=== PATIENT | female | born 1970 | race Caucasian/White ===

== ENCOUNTER 2017-03-21 15:09 | Emergency (ER) | payer MEDICAID, OTHER ==
[2017-03-21 15:23] VITALS: BMI 28.3
[2017-03-21 15:36] VITALS: RESP 16
--- NOTE | 2017-03-21 16:04 | ED PDOC ---
Arrival/HPI - General Chief Complaint: Headache Time Seen by Provider: 03/21/17 15:27 Historian: Patient, Spouse, Family - History of Present Illness Narrative History of Present Illness (Text): 03/21/17 16:00 46 yo female, amharic and central african speaking, translation offered but requested and daughter for translation, no PMHx, presents to the ED c/o headache since early this morning. Headache is on the top of her head and occipital area described as throbbing 7/10. Not the worst headache of her life. The headache has improved. Early in the morning she had mild dizziness but that resolved. She also states she's had a cough since last night and this morning with associated shortness of breathe. The SOB has resolved. No chest pain. Some sore throat. No nasal congestion. No n/v. No numbness/weakness. No trouble with vision or trouble speaking. No fever. PMD: Dr. Iyer Past Medical History - Provider Review Nursing Documentation Reviewed: Yes - Reproductive Menopause: No - Psychiatric Hx Substance Use: No - Surgical History Hx Section: Yes Family/Social History - Physician Review Nursing Documentation Reviewed: Yes Family/Social History: No Known Family HX Smoking Status: Never Smoked Hx Alcohol Use: No Hx Substance Use: No Allergies/Home Meds Allergies/Adverse Reactions: Allergies No Known Allergies Allergy (Unverified 03/21/17 15:57) Home Medications: Home Meds Medication Instructions Recorded Confirmed No Known Home Med 03/21/17 03/21/17 Review of Systems - Physician Review All systems were reviewed & negative as marked: Yes - Review of Systems Constitutional: Normal Eyes: Normal ENT: Normal Respiratory: SOB, Cough Cardiovascular: absent: Chest Pain Gastrointestinal: Normal Genitourinary Female: Normal Musculoskeletal: Normal Skin: Normal Neurological: Headache, Dizziness. absent: Focal Weakness, Gait Changes, Speech Changes, Facial Droop, Disequilibrium Endocrine: Normal Hemo/Lymphatic: Normal Psychiatric: Normal Physical Exam Vital Signs Reviewed: Yes Vital Signs Temp Pulse Resp BP Pulse Ox 03/21/17 18:00 86 16 125/95 H 98 03/21/17 16:59 97.9 F 03/21/17 16:51 97.9 F 03/21/17 15:23 95 H 16 168/100 H 96 Temperature: Afebrile Blood Pressure: Normal Pulse: Regular Respiratory Rate: Normal Appearance: Positive for: Well-Appearing, Non-Toxic, Comfortable Pain Distress: None Mental Status: Positive for: Alert and Oriented X 3 - Systems Exam Head: Present: Atraumatic, Normocephalic, Tenderness (mild tenderness to occiptal area) Pupils: Present: PERRL Extroacular Muscles: Present: EOMI Conjunctiva: Present: Normal Mouth: Present: Moist Mucous Membranes Neck: Present: Normal Range of Motion Respiratory/Chest: Present: Clear to Auscultation, Good Air Exchange. No: Respiratory Distress, Accessory Muscle Use Cardiovascular: Present: Regular Rate and Rhythm, Normal S1, S2. No: Murmurs Abdomen: Present: Normal Bowel Sounds. No: Tenderness, Distention, Peritoneal Signs Back: Present: Normal Inspection Upper Extremity: Present: Normal Inspection. No: Cyanosis, Edema Lower Extremity: Present: Normal Inspection. No: Edema Neurological: Present: GCS=15, CN II-XII Intact, Speech Normal, Motor Func Grossly Intact, Normal Sensory Function, Gait Normal, Memory Normal Skin: Present: Warm, Dry, Normal Color. No: Rashes Psychiatric: Present: Alert, Oriented x 3, Normal Insight, Normal Concentration Medical Decision Making ED Course and Treatment: 03/21/17 16:05 46 yo female with headache, dizziness r/o HTN urgency; Cough/SOB r/o PNA -- Labs -- CXR -- EKG -- Reglan and Tylenol -- Reevaluate and disposition 03/23/17 19:00 Patient's labs normal. CXR normal with no PNA. Patient's neuro exam unchanged and normal. She feels completely better after medication. She will go home with her family. She was advised that if symptoms worsen or any other concerns to return to the ED. - Lab Interpretations Lab Results: 03/21/17 16:42 03/21/17 16:42 Lab Results 03/21/17 16:42: Sodium 144, Potassium 4.0, Chloride 104, Carbon Dioxide 30, Anion Gap 14, BUN 11, Creatinine 0.6 L, Est GFR ( Amer) > 60, Est GFR ( Non-Af Amer) > 60, Random Glucose 114 H, Calcium 9.5, Magnesium 2.2, Total Bilirubin 0.3, AST 45 H, ALT 66 H, Alkaline Phosphatase 28 L, Lactate Dehydrogenase 550, Total Creatine Kinase 280 H, CK-MB (CK-2) 5.1 H, CK-MB (CK-2 ) % 1.8 L, Troponin I < 0.01, Total Protein 7.7, Albumin 4.5, Globulin 3.2, Albumin/Globulin Ratio 1.4 03/21/17 16:42: WBC 4.7, RBC 4.80, Hgb 13.0, Hct 39.1, MCV 81.5, MCH 27.1, MCHC 33.2, RDW 16.0 H, Plt Count 251, MPV 9.6, Gran % 60.6, Lymph % (Auto) 31.8, [place] % (Auto) 5.7, Eos % (Auto) 1.5, Baso % (Auto) 0.4, Gran # 2.85, Lymph # 1.5 , [place] # 0.3, Eos # 0.1, Baso # 0.02 - RAD Interpretation Radiology Orders: 03/21/17 15:59 CHEST PORTABLE [RAD] Stat - EKG Interpretation Interpreted by ED Physician: Yes (NSR at [address] elevation, nl interval) Type: 12 lead EKG - Medication Orders Current Medication Orders: Discontinued Medications Acetaminophen (Tylenol 325mg Tab) 975 mg PO STAT STA Stop: 03/21/17 16:00 Last Admin: 03/21/17 16:59 Dose: 975 mg MAR Pain/Vitals Document 03/21/17 16:59 MS (Rec: 03/21/17 17:00 [place] [id number]) Pain Reassessment Is This A Pain ReAssessment? No Sleep Is patient sleeping during reassessment? 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 Charges for Administration # of IVP Administrations 1 Disposition/Present on Arrival - Present on Arrival Any Indicators Present on Arrival: No History of DVT/PE: No History of Uncontrolled Diabetes: No Urinary Catheter: No History of Decub. Ulcer: No History Surgical Site Infection Following: None - Disposition Have Diagnosis and Disposition been Completed?: Yes Diagnosis: Headache, Bronchitis, Hypertension Disposition: HOME/ ROUTINE Disposition Time: 19:00 Patient Plan: Discharge Condition: IMPROVED Discharge Instructions (ExitCare): Acute Bronchitis (ED), Acute Headache (ED), Hypertension (ED) Additional Instructions: Ms Tang, thank you for letting us take care of you today. Your provider was Dr. Alexandre. You were treated for Headache, Hypertension, Bronchitis. The emergency medical care you received today was directed at your acute symptoms. If you were prescribed any medication, please fill it and take as directed. It may take several days for your symptoms to resolve. Return to the Emergency Department if your symptoms worsen, do not improve, or if you have any other problems. Please contact your doctor or call one of the physicians/clinics you have been referred to that are listed on the Patient Visit Information form that is included in your discharge packet. Bring any paperwork you were given at discharge with you along with any medications you are taking to your follow up visit. Our treatment cannot replace ongoing medical care by a primary care provider (PCP) outside of the emergency department. Thank you for allowing the [facility] team to be part of your care today. If you had an X-Ray or CT scan: A Radiologist will review the ED reading if any change in treatment is needed we will contact you. If you had a blood, urine, or wound culture: It will take several days for the results, if any change in treatment is needed we will contact you. If you had an STI test: It will take 48 hours for the results. Please call after 1 week if you have not heard back. Referrals: [facility], [Non-Staff] - Follow up with primary Forms: [employer] (Frisian)
[2017-03-21 16:52] VITALS: TEMP 97.9
[2017-03-21 16:55] LABS: BASO # 0.02 K/mm3 (0.0-2.0); BASO % 0.4 % (0.0-3.0); EOS # 0.1 (0.0-0.7); EOS % 1.5 % (1.5-5.0); GRAN # 2.85 (1.4-6.5); GRAN % 60.6 % (50.0-68.0); HEMATOCRIT 39.1 % (36.0-48.0); LYMPH # 1.5 (1.2-3.4); LYMPH % 31.8 % (22.0-35.0); MEAN CELL VOLUME 81.5 fl (80.0-105.0); MEAN CORPUSCULAR HEMOGLOBIN 27.1 pg (25.0-35.0); MEAN CORPUSCULAR HGB CONC 33.2 g/dl (31.0-37.0); MEAN PLATELET VOLUME 9.6 fl (7.0-11.0); MONO # 0.3 (0.1-0.6); MONO % 5.7 % (1.0-6.0); WHITE BLOOD COUNT 4.7 10^3/ul (4.5-11.0)
[2017-03-21 17:02] LABS: ALB/GLOB RATIO 1.4 (1.1-1.8); ALKALINE PHOSPHATASE 28 U/L (38-126); ALT/SGPT 66 U/L (7-56); AST/SGOT 45 U/L (14-36); BILIRUBIN,TOTAL 0.3 mg/dL (0.2-1.3); BLOOD UREA NITROGEN 11 mg/dL (7-21); CALCIUM 9.5 mg/dL (8.4-10.5); CARBON DIOXIDE 30 mmol/L (21-33); CHLORIDE 104 mmol/L (98-107); GFR AFRICAN-AMERICAN > 60; GLUCOSE,RANDOM 114 mg/dL (70-110); MAGNESIUM 2.2 mg/dL (1.7-2.2); SODIUM 144 mmol/L (132-148); TOTAL PROTEIN 7.7 g/dL (5.8-8.3)
[2017-03-21 17:17] LABS: TROPONIN I < 0.01 ng/mL
[2017-03-21 18:26] VITALS: BP 125/95; PULSE 86; O2SAT 98
--- NOTE | 2017-03-21 20:38 | CARD ---
APPROVED REPORT EKG Measurement Heart [id number] <Conclusion> Normal sinus rhythm Cannot rule out Anterior infarct, age undetermined Abnormal ECG
--- NOTE | 2017-03-22 09:12 | RAD ---
HISTORY: cough r/o pna COMPARISON: 06/18/2013 FINDINGS: LUNGS: No active pulmonary disease. PLEURA: No significant pleural effusion identified, no pneumothorax apparent. CARDIOVASCULAR: Normal. OSSEOUS STRUCTURES: No significant abnormalities. VISUALIZED UPPER ABDOMEN: Normal. OTHER FINDINGS: None. IMPRESSION: No active disease.
== END 2017-03-21 19:00 | disposition home or self-care (01) ==
LOC: ED 15:09
DX: I10 Essential (primary) hypertension (principal); J40 Bronchitis, not specified as acute or chronic; R51 Headache
CPT/HCPCS: 71010; 80053; 82550; 82553; 83615; 83735; 84484; 85025; 93005; 96374; 99285; J2765

== ENCOUNTER 2018-06-14 21:42 | Emergency (ER) | payer MEDICAID ==
[2018-06-14 21:42] VITALS: BMI 28.3
[2018-06-14 22:19] VITALS: BP 149/106; PULSE 78; RESP 20; TEMP 97.8; O2SAT 98
--- NOTE | 2018-06-14 22:31 | ED PDOC ---
Arrival/HPI - General Chief Complaint: Flu-like Symptoms Time Seen by Provider: 06/14/18 21:44 Historian: Patient, Family - History of Present Illness Narrative History of Present Illness (Text): 06/14/18 22:28 El Tang is a 47 year old female, with no significant past medical history, who presents to the Emergency department accompanied by family complaining of a headache. Patient states, via relative acting as print designer, she has been experiencing a global headache with associated nausea and 1 episode of vomiting. Patient states she has a history of similar headaches in the past and took Aleve today with no significant relief. Patient denies any fever, chills, chest pain, shortness of breath, diarrhea, urinary symptoms, back pain, neck pain, dizziness, or any other complaints. Symptom Onset: Gradual Symptom Course: Unchanged Activities at Onset: Light Context: Home Past Medical History - Provider Review Nursing Documentation Reviewed: Yes - Psychiatric Hx Substance Use: No - Surgical History Hx Section: Yes Family/Social History - Physician Review Nursing Documentation Reviewed: Yes Family/Social History: Unknown Family HX Smoking Status: Never Smoked Hx Alcohol Use: No Hx Substance Use: No Allergies/Home Meds Allergies/Adverse Reactions: Allergies No Known Allergies Allergy (Verified 06/14/18 22:04) Home Medications: Home Meds Medication Instructions Recorded Confirmed No Known Home Med 03/21/17 06/14/18 Review of Systems - Physician Review All systems were reviewed & negative as marked: Yes - Review of Systems Constitutional: Normal. absent: Fevers Eyes: Normal ENT: Normal Respiratory: Normal. absent: SOB, Cough Cardiovascular: Normal. absent: Chest Pain Gastrointestinal: Nausea, Vomiting. absent: Abdominal Pain, Diarrhea Genitourinary Female: Normal. absent: Dysuria, Frequency, Hematuria, Urine Output Changes Musculoskeletal: Normal. absent: Back Pain, Neck Pain Skin: Normal. absent: Rash Neurological: Headache. absent: Dizziness Endocrine: Normal Hemo/Lymphatic: Normal Psychiatric: Normal Physical Exam Vital Signs Reviewed: Yes Vital Signs Temp Pulse Resp BP Pulse Ox 06/14/18 22:18 97.8 F 78 20 149/106 H 98 06/14/18 22:01 97.3 F L 76 17 140/87 100 Temperature: Afebrile Blood Pressure: Normal Pulse: Regular Respiratory Rate: Normal Appearance: Positive for: Well-Appearing, Non-Toxic, Comfortable Pain Distress: None Mental Status: Positive for: Alert and Oriented X 3 - Systems Exam Head: Present: Atraumatic, Normocephalic Pupils: Present: PERRL Extroacular Muscles: Present: EOMI Conjunctiva: Present: Normal Ears: Present: Normal, NORMAL TM, Normal Canal. No: Erythema, TM Bulging, Fluid, TM Perf Mouth: Present: Moist Mucous Membranes Pharnyx: Present: Normal. No: ERYTHEMA, EXUDATE, TONSILS ENLARGED, Peritonsilar Swelling, Uvular Deviation, Muffled/Hoarse Voice, Strider, Soft Palate/Uvular Edema Nose (External): Present: Atraumatic Nose (Internal): Present: Normal Inspection Neck: Present: Normal Range of Motion. No: Meningeal Signs, MIDLINE TENDERNESS, Paraspinal Tenderness Respiratory/Chest: Present: Clear to Auscultation, Good Air Exchange. No: Respiratory Distress, Accessory Muscle Use Cardiovascular: Present: Regular Rate and Rhythm, Normal S1, S2. No: Murmurs Abdomen: No: Tenderness, Distention, Peritoneal Signs Back: Present: Normal Inspection. No: CVA Tenderness, Midline Tenderness, Paraspinal Tenderness Upper Extremity: Present: Normal Inspection. No: Cyanosis, Edema Lower Extremity: Present: Normal Inspection. No: Edema Neurological: Present: GCS=15, CN II-XII Intact, Speech Normal, Motor Func Grossly Intact, Normal Sensory Function, Normal Cerebellar Funct, Memory Normal Skin: Present: Warm, Dry, Normal Color. No: Rashes Psychiatric: Present: Alert, Oriented x 3, Normal Insight, Normal Concentration Medical Decision Making ED Course and Treatment: 06/14/18 22:28 Impression: 47 year old female complaining of global headache, nausea, and vomiting. Plan: -- CT Head w/o contrast -- Labs -- IV fluids -- Reglan -- Benadryl -- Reassess and disposition Progress Notes: 06/14/18 23:[address] Head, states she feels significantly better after medication. Pt wishes to go home and was advised against the risks of leaving against medical advice. Pt continues to wish to leave. Pt will sign out against medical advice. The patient is choosing to leave against medical advice. I have personally explained to the patient that choosing to do so may result in permanent bodily harm, diability, or . I have discussed at great length that without further evaluation and monitoring there may be unforeseen circumstances and/or deterioration causing permanent bodily harm or as a result of their choice. The patient is alert, oriented, and shows the mental capacity to make clear decisions regarding the patients health care at this time. The patient continues to wish to leave against medical advice. In light of the patients decision to leave against medical advice, patient is aware of the importance to following up as instructed. The patient has been advised that they should return to the emergency room immediately if they change their mind at any time, or if their condition begins to change or worsen in any way. - Scribe Statement The provider has reviewed the documentation as recorded by the Noa White Provider Scribe Attestation: All medical record entries made by the Scribe were at my direction and personally dictated by me. I have reviewed the chart and agree that the record accurately reflects my personal performance of the history, physical exam, medical decision making, and the department course for this patient. I have also personally directed, reviewed, and agree with the discharge instructions and disposition. Disposition/Present on Arrival - Present on Arrival Any Indicators Present on Arrival: No History of DVT/PE: No History of Uncontrolled Diabetes: No Urinary Catheter: No History of Decub. Ulcer: No History Surgical Site Infection Following: None - Disposition Have Diagnosis and Disposition been Completed?: Yes Diagnosis: Headache Disposition: AGAINST MEDICAL ADVICE Disposition Time: 23:59 Condition: STABLE Referrals: Jaylon Trevino MD [Primary Care Provider] - Follow up with primary Forms: [employer] (Ukrainian)
[2018-06-14] MEDS ORDERED: DiphenhydrAMINE 50 mg/ml Inj IVP ONE (22:32)
[2018-06-14] MEDS ORDERED: Sodium Chloride 0.9% 1,000 ML IV STA (22:32)
[2018-06-14 23:38] LABS: HEMOGLOBIN 14.5 g/dL (12.0-16.0); MEAN CELL VOLUME 82.3 fl (80.0-105.0); MEAN CORPUSCULAR HEMOGLOBIN 27.3 pg (25.0-35.0); MEAN CORPUSCULAR HGB CONC 33.2 g/dl (31.0-37.0); MEAN PLATELET VOLUME 9.8 fl (7.0-11.0); RBC 5.31 10^6/uL (3.5-6.1); RED CELL DISTRIBUTION WIDTH 17.1 % (11.5-14.5)
== END 2018-06-14 23:55 | disposition left against medical advice (07) ==
LOC: ED 21:42
DX: R51 Headache (principal)
CPT/HCPCS: 85027; 96360; 99284; J7030